=== PATIENT | female | born 1970 | race Caucasian/White ===

== ENCOUNTER 2023-02-16 16:14 | Outpatient (CLI) | payer OTHER | END 2023-02-16 16:15 | disposition home or self-care (01) | LOC: SCSRAD 16:14 | PROVIDERS: ATTEND Nurse Practitioner Family | DX: S89.91XA Unspecified injury of right lower leg, initial encounter (principal) ==

== ENCOUNTER 2023-06-15 15:12 | Outpatient (CLI) | payer BC | END 2023-06-15 15:13 | disposition home or self-care (01) | LOC: SCSRAD 15:12 | PROVIDERS: ATTEND Physician Assistant | DX: S89.92XA Unspecified injury of left lower leg, initial encounter (principal) ==

== ENCOUNTER 2023-06-21 10:06 | Outpatient (CLI) | payer BC | END 2023-06-21 10:07 | disposition home or self-care (01) | LOC: SCSMRI 10:06 | PROVIDERS: ATTEND Physician Assistant | DX: M23.304 Other meniscus derangements, unspecified medial meniscus, left knee (principal); M17.12 Unilateral primary osteoarthritis, left knee; M22.2X2 Patellofemoral disorders, left knee; M25.462 Effusion, left knee ==

== ENCOUNTER 2024-01-17 15:57 | Outpatient (CLI) | payer BC | END 2024-01-17 15:58 | disposition home or self-care (01) | LOC: SCSRAD 15:57 | PROVIDERS: ATTEND Chiropractor | DX: S99.921A Unspecified injury of right foot, initial encounter (principal) ==